=== PATIENT | female | born 2000 | race Caucasian/White ===

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

== ENCOUNTER 2020-12-02 08:49 | Outpatient (RCR) | payer BC ==
[2020-12-02 09:10] LABS: BASOPHILS % (AUTO) 1 % (0-10); EOSINOPHILS # (AUTO) 0.3 10^3/uL (0.0-0.3); EOSINOPHILS % (AUTO) 4 % (0-10); HEMATOCRIT 42 % (35-52); HEMOGLOBIN 13.7 g/dL (11.5-16.0); LYMPHOCYTES # (AUTO) 2.9 10^3/uL (1.0-4.0); LYMPHOCYTES % (AUTO) 38 % (12-44); MEAN CORPUSCULAR HEMOGLOBIN 31 pg (25-34); MEAN CORPUSCULAR HGB CONC 32 g/dL (32-36); MEAN CORPUSCULAR VOLUME 95 fL (80-99); MEAN PLATELET VOLUME 9.5 fL (9.0-12.2); MONOCYTES # (AUTO) 0.6 10^3/uL (0.0-1.0); MONOCYTES % (AUTO) 8 % (0-12); NEUTROPHILS # (AUTO) 3.8 10^3/uL (1.8-7.8); NEUTROPHILS % (AUTO) 50 % (42-75); PLATELET COUNT 343 10^3/uL (130-400); WHITE BLOOD COUNT 7.7 10^3/uL (4.3-11.0)
[2020-12-02 09:46] LABS: ALBUMIN 3.9 GM/DL (3.2-4.5); BILIRUBIN,TOTAL 0.6 MG/DL (0.1-1.0); CALCIUM 9.7 MG/DL (8.5-10.1); CREATININE SERUM 0.84 MG/DL (0.60-1.30); PHOSPHORUS 4.8 MG/DL (2.3-4.7); POTASSIUM 4.1 MMOL/L (3.6-5.0); TOTAL PROTEIN 7.6 GM/DL (6.4-8.2); URIC ACID 2.6 MG/DL (2.6-7.2)
[2020-12-02 09:47] LABS: BILIRUBIN,URINE NEGATIVE (NEGATIVE); CLARITY,URINE CLEAR; COLOR,URINE YELLOW; GLUCOSE, URINE (UA) NEGATIVE (NEGATIVE); KETONES,URINE NEGATIVE (NEGATIVE); LEUKOCYTE ESTERASE ,URINE NEGATIVE (NEGATIVE); NITRITE,URINE NEGATIVE (NEGATIVE); PROTEIN,URINE NEGATIVE (NEGATIVE)
[2020-12-02 10:00] LABS: BACTERIA,URINE NEGATIVE /HPF; RBC,URINE RARE /HPF; SQUAMOUS EPITHELIAL CELL,UR RARE /HPF; WBC,URINE RARE /HPF
--- NOTE | 2020-12-02 11:24 | Diagnostic Imaging Report ---
PROCEDURE: US Renal Bilateral. TECHNIQUE: Multiple real-time grayscale images were obtained over the kidneys in various projections bilaterally. INDICATION: Renal failure. COMPARISON: None. FINDINGS: Both kidneys are normal in size and echogenicity. The right kidney measures 11.3 cm in length and the left is 10.4 cm. The cortical thickness and the cortical medullary differentiation is well maintained. There is no evidence of calculi, focal mass or hydronephrosis. Limited views of the pelvis demonstrate moderately distended urinary bladder. No large intraluminal masses or calculi are present. There is no ascites. IMPRESSION: Normal renal sonogram. Dictated by: Dictated on workstation # [id number]
== END 2021-03-02 | disposition home or self-care (01) ==
LOC: RAD 08:49 → EDSTATUS 09:00
PROVIDERS: ATTEND Pediatrics Pediatric Nephrology
DX: N20.0 Calculus of kidney (principal)
CPT/HCPCS: 36415; 76770; 80053; 80061; 81000; 82306; 83036; 84100; 84550; 85025